=== PATIENT | female | born 1945 | race Caucasian/White ===

== ENCOUNTER 2019-04-10 09:32 | Inpatient (IN) ==
[2019-04-10] MEDS ORDERED: *HR* Propofol 200 MG/20 ML VIAL IVP ONE ×2 (09:43→14:25)
[2019-04-10] MEDS ORDERED: Lidocaine -MPF 2% 2 ML VIAL ONE (09:45)
[2019-04-10] MEDS ORDERED: Dexamethasone 4 MG/ML VIAL ONE (09:47)
[2019-04-10] MEDS ORDERED: Ondansetron 4 MG/2 ML VIAL ONE (09:47)
[2019-04-10] MEDS ORDERED: *HR* FentaNYL (PF) 100 MCG/2 ML VIAL ONE (10:01)
[2019-04-10] MEDS ORDERED: Albuterol 2.5 MG/3 ML NEBULIZER IH PRN (10:12)
[2019-04-10] MEDS ORDERED: CeFAZolin Syr 2,000MG/20 ML 2,000 MG/20 ML SYRINGE IVPB ONE (10:12)
[2019-04-10] MEDS ORDERED: Ringers Solution, Lactated 1,000 ML IVC SCH ×2 (10:15→10:45)
[2019-04-10] MEDS ORDERED: *HR* OxyCODONE Immed Rel 5 MG TABLET PO PRN (10:37)
[2019-04-10] MEDS ORDERED: Ondansetron 4 MG/2 ML VIAL IVP ONE (10:37)
[2019-04-10] MEDS ORDERED: Acetaminophen IV 1,000 MG/100 ML INFUS..BTL IVPB ONE (10:37)
[2019-04-10] MEDS ORDERED: *HR* Midazolam HCl 2 MG/2 ML VIAL ONE (13:29)
[2019-04-10] MEDS ORDERED: EPHEDrine 50 MG/ML VIAL ONE (14:18)
[2019-04-10] MEDS ORDERED: Lidocaine -MPF 4% 5 ML AMPUL ONE (14:23)
[2019-04-10] MEDS ORDERED: *HR* Rocuronium Bromide 50 MG/5 ML VIAL ONE (14:26)
[2019-04-10] MEDS: *HR* HYDROmorphone (PF) 1 MG/ML SYRINGE IVP PRN ×3 (15:40→15:55)
[2019-04-10] MEDS ORDERED: Naloxone 0.4 MG/ML INJ IVP PRN (16:34)
[2019-04-10] MEDS ORDERED: Ondansetron 4 MG/2 ML VIAL IVP PRN (16:34)
[2019-04-10] MEDS ORDERED: 0.9 % Sodium Chloride 1,000 ML IVC SCH (16:34)
[2019-04-10] MEDS: Ipratropium/Albuterol Neb 3 ML IH SCH ×2 (17:29→19:40)
[2019-04-10] MEDS: Ketorolac 15 MG/ML VIAL IVP SCH (18:05)
[2019-04-10] MEDS: Famotidine 20 MG TABLET PO SCH (21:36)
[2019-04-10] MEDS: Gabapentin 300 MG CAPSULE PO SCH (21:36)
[2019-04-10] MEDS: traZODone 50 MG TABLET PO SCH (21:37)
[2019-04-10] MEDS: Sennosides/Docusate Sodium TABLET PO SCH (21:37)
[2019-04-10] MEDS: *HR* Heparin 5,000 UNIT/ML VIAL SQ SCH (21:38)
[2019-04-11] MEDS: Ketorolac 15 MG/ML VIAL IVP SCH ×4 (00:14→16:42)
[2019-04-11] MEDS: *HR* HYDROcodone/Acet 5/325 mg TABLET PO PRN ×4 (00:14→21:33)
[2019-04-11] MEDS: Ipratropium/Albuterol Neb 3 ML IH SCH ×6 (00:21→20:35)
[2019-04-11 05:03] LABS: Hematocrit 40.2 % (35.3-44.9); Mean Corpuscular HGB Conc 31.8 g/dL (31.6-35.5); Mean Corpuscular Hemoglobin 31.2 pg (28.0-33.3); Mean Platelet Volume 10.8 fL (9.4-12.4); Platelet Count 150 K/mcL (140-400); Red Cell Distribution Width 12.2 % (11.5-14.5); White Blood Count 10.5 K/mcL (4.3-11.1)
[2019-04-11 05:04] LABS: Hemoglobin 12.8 g/dL (11.5-15.4)
[2019-04-11 05:27] LABS: % Iron Saturation 14 % (15-50); BUN/Creatinine Ratio 29 (6-26); Blood Urea Nitrogen 21 mg/dL (8-23); Calcium 8.7 mg/dL (8.6-10.3); Carbon Dioxide 25 mEq/L (23-29); Chloride 101 mEq/L (98-107); Glucose 164 mg/dL (70-105); Iron 46 mcg/dL (50-170); Osmolality,Calculated 291 (280-300); Potassium 4.3 mEq/L (3.5-5.1); Sodium 137 mEq/L (136-145); Transferrin 234 mg/dL (203-362); eGFR For African Americans > 60 (> 60); eGFR For Non-African Americans > 60 (> 60)
[2019-04-11] MEDS: *HR* Heparin 5,000 UNIT/ML VIAL SQ SCH ×3 (05:29→21:25)
[2019-04-11] MEDS: Gabapentin 300 MG CAPSULE PO SCH ×3 (07:45→21:26)
[2019-04-11] MEDS: Sennosides/Docusate Sodium TABLET PO SCH ×2 (07:45→21:26)
[2019-04-11] MEDS: Anastrozole 1 MG TABLET PO SCH (07:45)
[2019-04-11] MEDS: Famotidine 20 MG TABLET PO SCH ×2 (07:46→16:42)
[2019-04-11] MEDS: Aspirin Enteric Coated 81 MG Tablet PO SCH (07:46)
[2019-04-11] MEDS ORDERED: Iron Sucrose Complex 400 MG in 0.9 % Sodium Chloride 250 ML IVPB ONE (10:27)
[2019-04-11] MEDS: traZODone 50 MG TABLET PO SCH (21:25)
[2019-04-12] MEDS: Ipratropium/Albuterol Neb 3 ML IH SCH ×4 (00:27→11:24)
[2019-04-12] MEDS ORDERED: Ibuprofen 400 MG TABLET PO PRN (00:28)
[2019-04-12] MEDS: *HR* HYDROcodone/Acet 5/325 mg TABLET PO PRN (05:41)
[2019-04-12] MEDS: *HR* Heparin 5,000 UNIT/ML VIAL SQ SCH (07:44)
[2019-04-12] MEDS: Anastrozole 1 MG TABLET PO SCH (07:49)
[2019-04-12] MEDS: Aspirin Enteric Coated 81 MG Tablet PO SCH (07:49)
[2019-04-12] MEDS: Sennosides/Docusate Sodium TABLET PO SCH (07:49)
[2019-04-12] MEDS: Gabapentin 300 MG CAPSULE PO SCH (07:49)
[2019-04-12] MEDS: Famotidine 20 MG TABLET PO SCH (07:49)
[2019-04-12 11:16] VITALS: BP 129/70
== END 2019-04-12 12:40 | disposition home or self-care (01) | DRG 164 ==
LOC: SAMDAY 09:32 → 2NNU 16:30
PROVIDERS: ADMIT Thoracic Surgery (Cardiothoracic Vascular Surgery); ATTEND Thoracic Surgery (Cardiothoracic Vascular Surgery)